=== PATIENT | female | born 1980 | race Caucasian/White ===

== ENCOUNTER 2023-02-21 17:28 | Emergency (ER) | payer MEDICAID, SELFPAY ==
--- NOTE | ~2023-02-21 | CT_ITS ---
EXAMINATION: CT abdomen pelvis w con INDICATION: Left lower quadrant pain TECHNIQUE: Computed tomographic images of the abdomen and pelvis were obtained after the administrati on of 100 cc of Omnipaque 350 intravenous contrast. The dose-length product (DLP) was 462.08 mGy-cm. Automated exposure control and iterative reconstruction technique were employed. COMPARISON: None available FINDINGS: Minimal dependent atelectasis is present in the lung bases. The heart size is normal. The l iver, spleen, pancreas, gallbladder, and adrenal glands are normal. The kidneys are unremarkable. No pathologically enlarged abdominal or pelvic lymph nodes are identified. No free intraperitoneal gas o r evidence of bowel obstruction. The appendix is normal. There is moderate lumbar spondylosis at L5-S 1. IMPRESSION: 1. No CT correlate for the patient's symptoms. Reviewed, dictated and finalized at location [facility]. [employer]
--- NOTE | ~2023-02-21 | US_ITS ---
EXAMINATION: US pelvic complete w TV DATE: 02/21/2023 19:22 INDICATION: Left lower quadrant pain, history of right salpingo-oophorectomy TECHNIQUE: Multiple transabdominal and endovaginal sonographic images of the pelvis were obtained. COMPARISON: None. FINDINGS: The uterus measures 8.5 x 4.6 x 5.3 cm. The endometrial complex measures 6 mm. There is an approximately 2.6 cm isoechoic mass in the anterior uterine body which may reflect intramural fibroid or possibly adenomyoma. The right ovary is surgically absent. The left ovary measures 4.7 x 2.6 x 3. 7 cm and contains cysts measuring up to 2.3 cm. There is normal vascular flow in the left ovary. Ther e is no free fluid in the pelvis. IMPRESSION: 1. No sonographic correlate for the patient's symptoms. Reviewed, dictated and finalized at location F. P [employer]
[2023-02-21 17:31] VITALS: BP 139/87; PULSE 95; RESP 20; TEMP 36.1; O2SAT 100
--- NOTE | 2023-02-21 17:37 | ED.ABDPAIN ---
HPI - Abdominal Pain General Chief Complaint: Abdominal Pain <HOLLY Boyle Last Filed: 02/21/23 17:40> Stated Complaint: feel like something is growing in my side <HOLLY Boyle Last Filed: 02/21/23 17:40> Time Seen by Provider: 02/21/23 18:25 <HOLLY Boyle Last Filed: 02/21/23 17:40> Source: patient <HOLLY Boyle Last Filed: 02/21/23 17:40> Mode of arrival: ambulatory <HOLLY Boyle Last Filed: 02/21/23 17:40> Limitations: no limitations <HOLLY Boyle Last Filed: 02/21/23 17:40> History of Present Illness HPI narrative: Patient is a 42 y/o female who presents to the ED with c/o LLQ abdominal pain. Patient reports pain began yesterday and became worse today. Rated 7/10 currently. She has not tried anything for the pain. Reports hx of similar pain on R side r/t ovarian torsion. Hx R salpingo-oophorectomy. Hx of ovarian cysts. Sees Dr. Bowling. Reports nausea and abdominal bloating. Denies vomiting, diarrhea, constipation, fevers, dysuria, hematuria. Patient denies vaginal bleeding. Actually late on her cycle. LNMP January 04. Currently sexually active. . <HOLLY Boyle Last Filed: 02/21/23 17:40> Patient is a 42 y/o female who presents to the ED with c/o umbilical abdominal pain. She states this pain has been occurring for years. Rated 7/10 currently. She has not tried anything for the pain. Reports hx of similar pain on R side r/t ovarian torsion. Hx R salpingo-oophorectomy. Hx of ovarian cysts. Reports nausea and abdominal bloating. Denies vomiting, diarrhea, fevers, dysuria, hematuria but she is Having urinary urgency and frequency. Denies dyspareunia. She is in the process of establishing with a GI specialist. her last bowel movement was a few days to. He reported it was normal for her to go several days without defecating. She continues to pass flatus. She states she occasionally uses marijuana and this seems to help. Patient denies vaginal bleeding or discharge. Actually late on her cycle. LNMP January 04. Currently sexually active. . Had recently seen OBGyn Curt Tawnya to see if it was possible that she could get . <Lisette Crowley MD - Last Filed: 02/21/23 22:10> Related Data Allergies/Adverse Reactions: Allergies Allergy/AdvReac Type Severity Reaction Status Date / Time Penicillins Allergy Mild PASSED OUT Verified 09/30/14 11:57 WHILE TAKING, UNKNOWN IF FROM FLU OR PCN <Imelda Griggs PA-C - Last Filed: 02/21/23 17:40> Review of Systems Constitutional: Constitutional: Denies fever(s) <Imelda Griggs PA-C - Last Filed: 02/21/23 17:40> Gastrointestinal: Gastrointestinal: Reports abdominal pain, Reports bloating, Denies diarrhea, Reports nausea and Denies vomiting <Imelda Griggs PA-C - Last Filed: 02/21/23 17:40> Genitourinary: Genitourinary: Denies abnormal vaginal bleeding <Imelda Griggs PA-C - Last Filed: 02/21/23 17:40> [facility] Past Medical History Medical History: Medical History (Updated 02/21/23 @ 21:56 by Lisette Crowley MD) Torsion of right ovary <HOLLY Boyle Last Filed: 02/21/23 17:40> Surgical History Surgical History: Surgical History (Updated 02/21/23 @ 21:55 by Lisette Crowley MD) H/O unilateral oophorectomy RIGHT; May 2013 Dr Martinez History of unilateral salpingectomy RIGHT; May 2013 Dr Martinez <HOLLY Boyle Last Filed: 02/21/23 17:40> Social History Social History: Social History (Updated 02/21/23 @ 22:05 by Lisette Crowley MD) Substance use type: marijuana <Imelda Griggs PA-C - Last Filed: 02/21/23 17:40> Exam Narrative: GENERAL: Well-appearing, well-nourished, and in no acute distress. HEAD: Normocephalic, atraumatic. EYES: PERRLA and EOMI. ENT: Nares clear, n
[2023-02-21] MEDS: ACETAMINOPHEN 500 MG TABLET 1000 MG PO (17:53)
[2023-02-21] MEDS: ONDANSETRON HCL ODT 4 MG TABLET PO (17:53)
[2023-02-21 18:09] LABS: Basophils Percent Auto 0.5 % (0.2-1.2); Eosinophils Absolute Auto 0.2 K/mm3 (0-0.3); Eosinophils Percent Auto 1.7 % (0-4.4); Hematocrit 40.2 % (37.0-47.0); Hemoglobin 13.5 g/dL (12.0-15.0); Immature Granulocyte Absolute 0.03 K/mm3 (0.00-0.031); Immature Granulocyte Percent A 0.3 % (0-0.5); Lymphocytes Absolute Auto 3.05 K/mm3 (0.9-3.2); Lymphocytes Percent Auto 34.5 % (18.3-44.2); Mean Corpuscular HGB Conc 33.6 g/dl (32-36); Mean Corpuscular Volume 95.3 fl (80-100); Mean Platelet Volume 10.2 fl (7.4-10.4); Monocytes Absolute Auto 0.7 K/mm3 (0.1-0.6); Monocytes Percent Auto 8.1 % (2.6-8.5); Neutrophils Absolute Auto 4.9 K/mm3 (1.3-6.7); Neutrophils Percent Auto 54.9 % (45.5-73.1); Platelet Count Result 296 k/mm3 (150-375); Red Blood Count 4.22 M/mm3 (4.2-5.4); Red Cell Distribution Width 13.5 % (11.5-14.5); White Blood Count 8.9 K/mm3 (4.5-10.0)
[2023-02-21 18:12] LABS: Appearance Urine Clear (Clear); Bacteria Urine None Seen /hpf; Bilirubin Urine Negative (Negative); Blood Urine 2+ (Negative); Color Urine Dark Yellow (Yellow); Glucose Urine UA Negative (Negative); Ketones Urine Trace mg/dL (Negative); Leukocyte Esterase Ur Trace LEU/UL (Negative); Nitrate Urine Negative (Negative); Non Pathogenic Casts 0-2; Protein Urine Negative (Negative); Specific Grav Ur 1.021 (1.001-1.035); Squamous Epithelial Cell Urine Occasional /hpf (Few); WBC Urine 0-5 /hpf; pH Urine 5.5 (5.0-9.0)
[2023-02-21 18:16] LABS: Add Urine Microscopic? YES
[2023-02-21 18:17] LABS: Alanine Aminotransferase 21 U/L (6-35); Albumin Level 5.1 g/dL (3.5-5.1); Alkaline Phosphatase 43 U/L (38-126); Anion Gap 12 mmol/L (8-16); Aspartate Amino Transferase 35 U/L (14-36); Bilirubin,Total 0.9 mg/dL (0.2-1.3); Blood Urea Nitrogen 9 mg/dL (7-17); Calcium 9.8 mg/dL (8.4-10.2); Carbon Dioxide 27 mmol/L (22-30); Chloride 100 mmol/L (98-107); Estimated CRCL calculation 85 ml/min; Estimated Glomerular Filt Rate > 60; Glucose 104 mg/dL (65-110); Potassium 3.7 mmol/L (3.4-5.0); Sodium 139 mmol/L (137-145)
--- NOTE | 2023-02-21 18:51 | PC.NURSE ---
Pt to u/s via w/c at this time.
[2023-02-21] MEDS: DICYCLOMINE HCL 10 MG CAPSULE PO (20:04)
[2023-02-21 21:14] VITALS: BP 134/87; PULSE 68; RESP 16; O2SAT 98
== END 2023-02-21 21:15 | disposition home or self-care (01) ==
PROVIDERS: Physician Assistant; Emergency Provider Student in an Organized Health Care Education/Training Program
DX: N30.01 Acute cystitis with hematuria (principal)
CPT/HCPCS: 36415; 74177; 76830; 76856; 80053; 81001; 81025; 85025; 96365; 99284; A9270; J0696; Q9967

== ENCOUNTER 2023-03-07 11:53 | Outpatient (CLI) | payer OTHER, SELFPAY | END 2023-03-07 11:54 | disposition home or self-care (01) | LOC: ANHLAB 11:56 | PROVIDERS: PCP Nurse Practitioner Family; Visit Provider Nurse Practitioner Family | DX: K59.00 Constipation, unspecified (principal) | CPT/HCPCS: 36415; 84443 ==

== ENCOUNTER 2023-03-18 02:55 | Day surgery (SDC) | payer OTHER, SELFPAY ==
[2023-03-10 09:05] VITALS: BMI 27.8
--- NOTE | 2023-03-16 12:16 | SUR.PREOP ---
Patient called regarding upcoming procedure. Reviewed preop instructions, appointment times, and procedure prep.
[2023-03-18 10:17] VITALS: BP 109/66; PULSE 69; RESP 18; TEMP 36.4; O2SAT 100; BMI 28.1
--- NOTE | 2023-03-18 10:32 | WPDANESEPPF ---
Anes - Initial Pre Proc Eval Procedure: Operation Date: 03/18/23 11:30 Proposed Procedures p Colonoscopy - Yuniel Yi MD Date/Time: 03/18/23 10:32 Surgeon: Yuniel Yi MD Pre Op Diagnosis: constipation unspecified, left lower quadrant pain Patient Data Age: 42 Gender: F Height: 1.68 m Weight: 79.1 kg Last Vital Signs Temp 36.4 C 03/18/23 10:17 Pulse 69 03/18/23 10:17 Resp 18 03/18/23 10:17 BP 109/66 03/18/23 10:17 Pulse Ox 100 03/18/23 10:17 O2 Del Method Room Air 03/18/23 10:17 Allergies Allergy/AdvReac Type Severity Reaction Status Date / Time Penicillins Allergy Mild PASSED OUT Verified 03/18/23 10:24 WHILE TAKING, UNKNOWN IF FROM FLU OR PCN Home Medications Medication Instructions Recorded Confirmed Type sulfamethoxazole 800 1 tablet PO Q12H 5 days #10 tabs 02/21/23 03/18/23 Rx mg-trimethoprim 160 mg tablet (Bactrim DS) linaclotide 290 mcg capsule 290 mcg PO DAILY 1 month #30 caps 03/07/23 03/18/23 Rx (Linzess) clindamycin HCl 300 mg capsule 300 mg PO TID 03/10/23 03/18/23 History Patient hx anesthesia problems: none Family hx anesthesia problems: none Results Review: All pre-operative results and documents have been reviewed as part of the pre-operative evaluation. [facility] Past Medical History Medical History Smoker Torsion of right ovary Surgical History Surgical History H/O unilateral oophorectomy RIGHT; May 2013 Dr Martinez History of unilateral salpingectomy RIGHT; May 2013 Dr Martinez Social History Social History Years smoked: 24 Smoking status: Current every day smoker Tobacco type: cigarettes Alcohol intake: current Drinks per week: 1 Substance use: current Substance use type: marijuana Other substance usage details: Every other day Living arrangements: with family Spiritual care concerns: No Anes - Eval Final PreProcedure Day of Procedure 03/18/23 10:32 Patient weight: overweight Heart: regular rate and rhythm Lungs: clear to auscultation Airway: Mallampati scale class II Neurological: alert and oriented Last oral intake: >/= 8 hours ASA classification: III Emergent: no Anesthetic plan: proceed Anesthesia type and monitoring: general GIVS and standard monitoring Results Review: All pre-operative results and documents have been reviewed as part of the pre-operative evaluation. Informed Consent: The patient's anesthetic plan and its attendant risks and benefits were discussed with the patient/family/POA. Questions were solicited and answers provided to the satisfaction of the patient/family/POA.
[2023-03-18] MEDS: LACTATED RINGERS 1,000 ML 150 ML IV CONT (10:42)
--- NOTE | 2023-03-18 10:45 | WPDHPUPDATE1 ---
History and Physical Update Update Date/Time: 03/18/23 10:45 History and Physical has been reviewed, including an updated exam of the patient. There are NO changes in the patient's condition. Risks, benefits, and alternatives have been discussed and questions answered. Patient agrees to proceed with procedure.
[2023-03-18 11:05] VITALS: BP 105/79; PULSE 75; RESP 20; O2SAT 98
[2023-03-18 11:15] VITALS: BP 105/63; PULSE 53; RESP 20; O2SAT 100
[2023-03-18 11:25] VITALS: BP 112/65; PULSE 60; RESP 18; O2SAT 100
== END 2023-03-18 11:40 | disposition home or self-care (01) ==
PROVIDERS: Visit Provider Internal Medicine Gastroenterology
PROC: 0DJD8ZZ Inspection of Lower Intestinal Tract, Via Natural or Artificial Opening Endoscopic (ICD-10-PCS; CPT 45378; principal; 2023-03-18 11:30)
DX: D12.5 Benign neoplasm of sigmoid colon (principal); K64.8 Other hemorrhoids; R10.32 Left lower quadrant pain; K59.00 Constipation, unspecified
CPT/HCPCS: 45385; 88305; J2001; J2704; J7120

== ENCOUNTER 2023-06-15 19:35 | Emergency (ER) | payer OTHER, SELFPAY ==
[2023-06-15 19:41] VITALS: BP 121/66; PULSE 91; RESP 18; TEMP 36.4; O2SAT 99
[2023-06-15 20:29] LABS: Appearance Urine Clear (Clear); Bacteria Urine None Seen /hpf; Bilirubin Urine Negative (Negative); Blood Urine 3+ (Negative); Color Urine Dark Yellow (Yellow); Glucose Urine UA Negative (Negative); Ketones Urine Negative (Negative); Leukocyte Esterase Ur Negative LEU/UL (Negative); Nitrate Urine Negative (Negative); Non Pathogenic Casts 0-2; Protein Urine Trace mg/dL (Negative); Specific Grav Ur 1.024 (1.001-1.035); Squamous Epithelial Cell Urine Occasional /hpf (Few); WBC Urine 0-5 /hpf (0-3)
[2023-06-15 20:34] LABS: Add Urine Microscopic? YES
[2023-06-15] MEDS: DOXYCYCLINE HYCLATE 100 MG TABLET PO (21:09)
[2023-06-15] MEDS: metroNIDAZOLE 500 MG TABLET PO (21:09)
[2023-06-15] MEDS: cefTRIAXone 1 GM VIAL 0.5 GM IM (21:09)
--- NOTE | 2023-06-15 21:33 | ED.GENADULT ---
HPI - General Adult General Chief complaint: Unspecified Stated complaint: came from , here for antibiotics Time Seen by Provider: 06/15/23 20:09 History of Present Illness HPI narrative: Patient concerned that her BF has an STD; there was blood in his semen and he saw his doctor and started on a course of antibiotics. She is currently on her period and has mild cramping from it, but otherwise denies any discharge. Related Data Allergies Allergy/AdvReac Type Severity Reaction Status Date / Time Penicillins Allergy Mild PASSED OUT Verified 06/15/23 21:11 WHILE TAKING, UNKNOWN IF FROM FLU OR PCN Review of Systems Review of Systems: CONST: No fever. HEENT: No sore throat C/V: No chest pain RESP: No cough GI: Reports pelvic cramping : VB M/S: No joint pain. SKIN: No rash. NEURO: [No headache or focal numbness or weakness] PSYCH: [No depression] PMFSH Past Medical History Medical History Smoker Torsion of right ovary Surgical History Surgical History H/O unilateral oophorectomy RIGHT; May 2013 Dr Martinez History of unilateral salpingectomy RIGHT; May 2013 Dr Martinez Social History Social History Years smoked: 24 Smoking status: Current every day smoker Tobacco type: cigarettes Alcohol intake: current Drinks per week: 1 Substance use: current Substance use type: marijuana Other substance usage details: Every other day Living arrangements: with family Spiritual care concerns: No Exam Narrative: EXAMINATION OF ORGAN SYSTEMS/BODY AREAS: Constitutional: Vital signs per nursing GENERAL:[No acute distress, non-toxic appearing.] HEAD: Normal with no signs of head trauma. EYES: EOMI, conjunctiva normal ENT: Hearing grossly intact LUNGS: Nonlabored breathing. HEART: [Regular rate and rhythm] ABD: [Soft], [nontender to palpation] EXT: Normal range of motion SKIN: [No rashes or lesions.] NEURO: [Alert and oriented x 3. No gross focal sensory or strength deficits.] PSYCH: Normal affect Course Vital Signs Vital signs: Vital Signs Temperature 97.6 F 06/15/23 19:41 Pulse Rate 91 06/15/23 19:41 Respiratory Rate 18 06/15/23 19:41 Blood Pressure 121/66 06/15/23 19:41 Pulse Oximetry 99 06/15/23 19:41 Oxygen Delivery Room Air 06/15/23 19:41 Temperature 97.6 F 06/15/23 19:41 Pulse Rate 91 06/15/23 19:41 Respiratory Rate 18 06/15/23 19:41 Blood Pressure 121/66 06/15/23 19:41 Pulse Oximetry 99 06/15/23 19:41 Oxygen Delivery Room Air 06/15/23 19:41 Medical Decision Making MDM Narrative Medical decision making narrative: 42-year-old patient presents to the emergency department for STD testing/treatment, she is concerned because her boyfriend had ejaculated in her mouth and the semen was very bloody. She states that he then went to get testing, and they came back and told her that his labs are clean, but that he was started on antibiotics for a sinus infection, but that they could not have sex for 1 week. Denies any systemic symptoms. Declined pelvic exam. GC/CT were sent for testing. [ test is negative.] Patient was treated empirically with ceftriaxone 500 mg IM, flagyl 500mg, and doxycycline 100mg, they are counseled on safe sex practices and should follow up regarding results, and can return to ER for any worsening symptoms. Vital Signs Vital Signs: Vital Signs Temperature 97.6 F 06/15/23 19:41 Pulse Rate 91 06/15/23 19:41 Respiratory Rate 18 06/15/23 19:41 Blood Pressure 121/66 06/15/23 19:41 Pulse Oximetry 99 06/15/23 19:41 Oxygen Delivery Room Air 06/15/23 19:41 Temperature 97.6 F 06/15/23 19:41 Pulse Rate 91 06/15/23 19:41 Respiratory Rate 18 06/15/23 19:41 Blood Pressure 121/66 06/15/23 19:41 Pulse
[2023-06-15 22:03] LABS: Trichomonas Vag PCR NOT DETECTED (NOT DETECTE)
[2023-06-15 22:26] LABS: Chlamydia trachomatis NOT DETECTED (NOT DETECTE); Neisseria gonorrhoeae PCR NOT DETECTED (NOT DETECTE)
== END 2023-06-15 21:42 | disposition home or self-care (01) ==
LOC: ANHED 20:54
PROVIDERS: Emergency Provider Emergency Medicine
DX: Z20.2 Contact with and (suspected) exposure to infections with a predominantly sexual mode of transmission (principal); F17.210 Nicotine dependence, cigarettes, uncomplicated
CPT/HCPCS: 81001; 81025; 87491; 87591; 87661; 96372; 99284; A9270; J0696